=== PATIENT | female | born 1950 | race Caucasian/White ===

== ENCOUNTER 2017-10-31 21:00 | Outpatient (CLI) | payer MEDICARE, OTHER | END 2017-10-31 23:59 | disposition home or self-care (01) | LOC: D.MAMMO 21:00 | DX: Z12.31 Encounter for screening mammogram for malignant neoplasm of breast (principal) ==

== ENCOUNTER 2018-06-07 13:36 | Observation (INO) | payer MEDICARE, OTHER ==
--- NOTE | ~2018-06-07 | HEMODYNAMI ---
PATIENT:ADAM SUN MEDICAL RECORD: [id number] : 52 LOCATION:[address] ADMISSION DATE: 06/07/18 Generatedon:06/08/201810:28 Patient name: ADAM SUN Patient #: [id number] SSN: : 1950 Date of study: 06/08/2018 Page: Of Hemodynamic Procedure Report Patient Data Patient Demographics Procedure consent was obtained First Name: ADAM Gender: Female Last Name: DINO : 1950 Patient #: [id number] Age: 68 year(s) Race: Unknown Additional ID: [id number] Contact details [address]: [address] [place] [address] State: [place] City: [place] Zip code: [address] Past Medical History Allergies: No known allergies Admission Admission Data Admission Date: 06/07/2018 Admission Time: 15:19 Room #: 2120 Height (in.): 64.96 BSA: 1.77 (m2) Height (cm.): 165 BMI: 25.71 (kg/m2) Weight (lbs.): 154.32 Weight (kg.): 70 Lab Results Lab Result Date: 06/08/2018 Lab Result Time: 0:00 Biochemistry Name Units Result Min Max BUN mg/dl 15 --(--*-)-- 7 18 Creatinine mg/dl 0.7 --(*---)-- 0.6 1.3 CBC Name Units Result Min Max Hematocrit % 38.7 *-(----)-- 42 54 Hemoglobin g/dl 13.5 --(*---)-- 13.5 17.5 Procedure Procedure Types Cath Procedure Diagnostic Procedure [facility] w/Coronaries Sedation Charges Moderate Sedation up to 15 minutes PCI Procedure Coronary Stent Coronary Stent Initial Procedure Description Procedure Date Procedure Date: 06/08/2018 Procedure Start Time: 9:57 Procedure End Time: 10:24 Procedure Staff Name Function Aidan Pierre MD Performing Physician Romi NIX Monitor Mildred Woodruff RT Scrub Beatris Magaña RN Nurse Osmani Lovett RN Statistical Developer Procedure Data Cath Procedure Fluoroscopy Diagnostic fluoroscopy Total fluoroscopy Time: 7.9 time: 7.9 min min Diagnostic fluoroscopy Total fluoroscopy dose: 873 dose: 873 mGy mGy Contrast Material Contrast Material Type Amount (ml) Isovue 300 124 Entry Location Entry Primary Successful Side Size Upsize Upsize Entry Closure Succes sful Closure Location (Fr) 1 (Fr) 2 (Fr) Remarks Device Remarks Radial Right 6 Fr artery Short Estimated blood loss: 10 ml Diagnostic catheters Device Type Used For End Catheter Placement DIAGNOSTIC Lisman 110cm 5 Procedure Fr catheter ([id number]) Procedure Complications No complications Procedure Medications Medication Administration Route Dosage Oxygen etCO2 Nasal cannula 2 l/min Lidocaine 2% added to field 20 Heparin Flush Bag added to field 2 bags (1000units/500ml NS) 0.9% NaCl I.V. 100 ml/hr Radial Cocktail I.A. 1 syringe (Verapomil 2mg/Nitro 400mcg/Heparin 1500units) Versed I.V. 2 mg Fentanyl I.V. 50 mcg Versed I.V. 1 mg Fentanyl I.V. 50 mcg Versed I.V. 1 mg Heparin Bolus I.V. 7000 units Nitroglycerin IC/IA I.C. 100 mcg Versed I.V. 1 mg Plavix P.O. 600 mg Hemodynamics Rest BSA: 1.77 (m2) HGB: 13.5 (g/dl) O2 Consumption: Estimated: 159.01 (ml/min) O2 Co nsumption indexed: Estimated:89.84 (ml/min/m) Heart Rate: 62 (bpm) Pressure Samples Time Site Value (mmHg) Purpose Heart Use Rate(bpm) 10:00 LV 116/-8,2 EDP 92 Gradients Valve Time Site Site Mean SEP/DFP Peak To Heart Use 1 2 (mmHg) (sec/min) Peak Rate (mmHg) (bpm) Aortic 10:01 LV AO 118 Snapshots Pre Cath Intra NCS Post Cath Vital Signs Time Heart Resp SPO2 etCO2 NIBP (mmHg) Rhythm Pain Sedation Rate (ipm) (%) (mmHg) Status Level (bpm) 9:45:07 61 18 100 29.7 165/84(107) NSR 0 (11) 10(A) , No pain 9:49:25 61 17 98 26.7 135/78(104) NSR 0 (11) 10(A) , No pain 9:53:35 56 13 98 0 131/70(97) NSR 0 (11) 10(A) , No pain 9:57:45 63 15 96 0 136/68(90) NSR 0 (11) 9(A) , No pain 10:01:57 73 12 95 9.6 103/63(84) NSR 0 (11) 9(A) , No pain 10:05:59 76 14 94 13.3 103/61(83) NSR 0 (11) 9(A) , No pain 10:10:54 71 12 98 18.5 124/67(90) NSR 0 (11) 9(A) , No pain 10:15:02 74 11 100 14.1 112/66(92) NSR 0 (11) 9(A) , No pain 10:19:57 86 14 99 32.6 127/76(101) NSR 0 (11) 10(A) , No pain 10:24:02 84 15 99 24.4 129/76(102) NSR 0 (11) 10(A) , No pain Medications Time Medication Route Dose Verified Delivered Reason Not es Effectiveness by by 9:51:45 Oxygen etCO2 2 l/min Aidan Buffie used for Nasal Ignacio Magaña RN procedure cannula 9:51:52 Lidocaine 2% added 20ml Aidan Aidan for local to vial Ignacio Pierre MD anesthetic field 9:51:58 Heparin Flush added 2 bags Aidan Aidan used for Bag to Ignacio Pierre MD procedure (1000units/500ml field NS) 9:52:06 0.9% NaCl I.V. 100 Aidan Buffie Per physician ml/hr Ignacio Magaña RN 9:55:55 Versed I.V. 2 mg Aidan Buffie for sedation Ignacoi Magaña RN 9:56:02 Fentanyl I.V. 50 mcg Aidan Buffie for sedation Ignacio Magaña RN 9:59:30 Versed I.V. 1 mg Aidan Buffie for sedation Ignacio Magaña RN 9:59:33 Fentanyl I.V. 50 mcg Aidan Buffie for sedation Ignacio Magaña RN 9:59:36 Radial Cocktail I.A. 1 Aidan Aidan for (Verapomil syringe Ignacio Pierre MD vasodilation 2mg/Nitro 400mcg/Heparin 1500units) 10:05:46 Versed I.V. 1 mg Aidan Buffie for sedation Ignacio Magaña RN 10:08:11 Heparin Bolus I.V. 7000 Aidan Buffie for aquiles ified units Ignacio Magaña RN anticoagulation with dr pierre 10:19:50 Nitroglycerin I.C. 100 mcg Aidan Aidan for IC/IA Ignacio Pierre MD vasodilation 10:20:13 Versed I.V. 1 mg Aidan Aidan for sedation Ignacio Pierre MD 10:23:05 Plavix P.O. 600 mg Aidan Buffie for Ignacio Magaña RN antiplatelet therapy Procedure Log Time Note 9:12:20 Signed procedure consent form obtained from patient. 9:12:21 Diagnostic Cath status Elective 9:12:22 Time tracking: Regular hours (M-F 7:00 - 5:00) 9:12:26 Plan of Care:Hemodynamics will remain stable., Cardiac rhythm will remain stable., Comfort level will be maintained., Respiratory function will remain adequate., Patient/ family verbilizes understanding of procedure., Procedure tolerated without complication., Recovers from procedure without complications.. 9:12:36 Patient allergic to No known allergies 9:13:13 Lab Result : BUN 15 mg/dl 9:13:13 Lab Result : Creatinine 0.7 mg/dl 9:13:13 Lab Result : Hemoglobin 13.5 g/dl 9:13:13 Lab Result : Hematocrit 38.7 % 9:26:22 Mildred Woodruff RT(R) sent for patient. Start room use. 9:39:59 Patient received from Med II to CCL 2 Alert and oriented. Tansferred to table in Supine position. 9:40:00 Warm blankets applied, and eric hugger turned on for patient comfort. 9:40:01 Correct patient and procedure confirmed by team. 9:40:01 ECG and BP/O2 sat monitors applied to patient. 9:44:00 Vital chart was started 9:44:01 Baseline sample Acquired. 9:44:04 Rhythm: sinus rhythm 9:44:05 Full Disclosure recording started 9:44:06 Pre-procedure instructions explained to patient. 9:44:07 Pre-op teaching completed and patient verbalized understanding. 9:44:08 Family in patients room. 9:44:09 Patient NPO since Midnight. 9:44:11 Is patient on blood thinner?No 9:44:11 Patient diabetic? No. 9:44:13 Is the patient allergic to Iodine/contrast media? No. 9:44:15 Previous problem with sedation/anesthesia? No ? 9:44:16 Snore? Yes 9:44:17 Sleep apnea? No 9:44:18 Deviated septum? No 9:44:20 Opens mouth fully? Yes 9:44:21 Sticks out tongue? Yes 9:44:24 Airway obstruction? No ? 9:44:26 Dentures? No ? 9:44:29 Modified Anthony's test Ulnar < 7 seconds 9:44:34 IV patent on arrival in left forearm with 0.9% NaCl at KVO. 9:44:38 Lab results completed and on chart. 9:44:40 Right Radial & Right Groin area was prepped with chlora-prep and draped in sterile fashion 9:44:41 Alarms reviewed by R. N. 9:44:42 Sharps counted by scrub and verified by R.N. 9:44:45 Use device set Radial Dx or PCI 9:44:46 ACIST Syringe (90135) opened to sterile field. 9:44:47 Bag Decanter (2002S) opened to sterile field. 9:44:48 ACIST Hand Control (79682) opened to sterile field. 9:44:48 ACIST Manifold (54161) opened to sterile field. 9:44:49 Tegaderm 4 x 4 (1626W) opened to sterile field. 9:44:50 Medline Cath Pack ([id number]) opened to sterile field. 9:44:50 DIAGNOSTIC WIRE .035 260cm J wire (183382) opened to sterile field. 9:44:51 MBrace Wrist Support ([id number]) opened to sterile field. 9:44:51 NEEDLE Cook 21G 4cm Radial (A21550) opened to sterile field. 9:44:52 SHEATH 6FR Slender (13-8826) opened to sterile field. 9:50:53 Patient Weight : 154.32 lbs 9:50:57 Patient Height : 64.96 inches 9:51:45 Oxygen 2 l/min etCO2 Nasal cannula was administered by Beatris Magaña RN; used for procedure; 9:51:52 Lidocaine 2% 20ml vial added to field was administered by Aidan Pierre MD; for local anesthetic; 9:51:58 Heparin Flush Bag (1000units/500ml NS) 2 bags added to field was administered by Aidan Pierre MD; used for procedure; 9:52:06 0.9% NaCl 100 ml/hr I.V. was administered by Beatris Magaña RN; Per physician; 9:53:30 --------ALL STOP TIME OUT------ 9:53:31 Final Timeout: patient, procedure, and site verified with staff and physician. All members of the team are in agreement. 9:53:32 Right Radial & Right Groin site verified by team. 9:53:35 Maximum allowable Isovue 300 dose 300ml. Physician notified. (300ml for normal creatinines. For patients with creatinine of 1.7 or higher multiply weight(kg) x 5 divided by creatinine.) 9:53:39 Fire Safety Assessment: A--An alcohol-based skin anteseptic being used preoperatively., C--Open oxygen or nitrous oxide is being used., D--An ESU, laser, or fiber-optic light is being used. 9:53:41 Physical assessment completed. ASA score P 2 - A patient with mild systemic disease as per Aidan Pierre MD. 9:53:44 Sedation plan: IV Moderate Sedation Medication:Versed, Fentanyl 9:53:48 Zero performed for pressure channel P1 9:55:55 Versed 2 mg I.V. was administered by Beatris Magaña RN; for sedation; 9:56:02 Fentanyl 50 mcg I.V. was administered by Beatris Magaña RN; for sedation; 9:57:07 Procedure started. 9:57:12 Local anesthetic to right radial artery with Lidocaine 2% by Aidan Pierre MD.INITIAL ACCESS ONLY 9:58:53 A 6 Fr Short sheath was inserted into the Right Radial artery 9:59:30 Versed 1 mg I.V. was administered by Beatris Magaña RN; for sedation; 9:59:33 Fentanyl 50 mcg I.V. was administered by Beatris Magaña RN; for sedation; 9:59:36 Radial Cocktail (Verapomil 2mg/Nitro 400mcg/Heparin 1500units) 1 syringe I.A. was administered by Aidan Pierre MD; for vasodilation; 9:59:48 Zero performed for pressure channel P1 10:00:00 A DIAGNOSTIC Lisman 110cm 5 Fr catheter (500241) was advanced over the wire and used for Procedure. 10:00:09 LV gram done using RANGEL 10:00:31 Injector settings: Ml/sec: 7, Volume: 15, 10:00:56 LV hemodynamics recorded. 10:01:21 EF : 60 % 10:02:24 LCA angiography performed. 10:03:55 RCA angiography performed. 10:03:57 Catheter exchanged over wire. 10:05:10 GUIDE 6FR AR 1.0 catheter ([id number]) opened to sterile field. 10:05:10 BMW 300cm Straight Marion 2 wire (6896774) opened to sterile field. 10:05:11 INFLATOR Merit BasixCompak (BQ8376) opened to sterile field. 10:05:11 TUBING High Pressure Extension Tubing (Ignacio) ([id number]) opened to sterile field. 10:05:46 Versed 1 mg I.V. was administered by Beatris Magaña RN; for sedation; 10:06:05 6 Fr AR 1 guide catheter was inserted over the wire 10:08:11 Heparin Bolus 7000 units I.V. was administered by Beatris Magaña RN; for anticoagulation; verified with dr pierre 10:10:01 BMW 300 wire advanced. 10:10:02 Wire advanced across lesion. 10:11:07 Inflate balloon Inflation number: 1 A EMERGE OTW 2.0 x 20 balloon ([id number]) was prepped and advanced across the Dist RCA, then inflated to 10 CASSIE for 0:10 (min:sec). 10:11:33 Inflation number: 2 The EMERGE OTW 2.0 x 20 balloon ([id number]) was reinflated across the Dist RCA, to 10 CASSIE for 0:10 (min:sec). 10:12:22 Balloon removed over the wire. 10:17:39 Place stent Inflation Number: 3 A ELISABET OTW 2.25 x 26 stent ([id number]) was prepped and advanced across the Dist RCA. The stent was deployed at 10 CASSIE for 0:10 (min:sec). 10:19:19 Stent catheter was removed intact over wire. 10:19:50 Nitroglycerin IC/IA 100 mcg I.C. was administered by Aidan Pierre MD; for vasodilation; 10:: Versed 1 mg I.V. was administered by Aidan Pierre MD; for sedation; ::43 Wire removed. 10::43 Guide catheter removed. 10:22:15 TR BAND Standard ([id number]) opened to sterile field. 10::27 Procedure ended.(Physican Out) 10::37 Fluoroscopy time 07.90 minutes. 10:: Flurop Dose total: 873 10:: Fluoroscopy dose: 873 mGy 10::47 Contrast amount:Isovue 300 124ml. 10::53 Sharps counted by scrub and verified by R.N. 10:22:56 TR band inflated with 14cc of air. 10:23:01 Post-procedure physical assessment completed. ASA score P 2 - A patient with mild systemic disease as per Aidan Pierre MD. 10:23:04 Post procedure rhythm: sinus rhythm 10:23:05 Plavix 600 mg P.O. was administered by Beatris aMgaña RN; for antiplatelet therapy; 10:23:06 Estimated blood loss: 10 ml 10:23:28 Post procedure instruction explained to patient.Patient verbalizes understanding. 10:23:28 Patient needs reinforcement of post procedure teaching. 10::39 Procedure type changed to Cath procedure, Diagnostic procedure, LHC, LHC w/Coronaries, Sedation Charges, Moderate Sedation up to 15 minutes, PCI procedure, Coronary Stent, Coronary Stent Initial 10:24:25 Procedure and supply charges have been captured, reviewed, submitted and are correct. 10:24:30 Procedure Complication : No complications 10:24:32 Vital chart was stopped 10:24:33 See physician's report for complete and final results. 10:24:35 Report given to Pre/Post Procedure Room. 10:24:37 Patient transfered to Pre/Post Procedure Room with Bed. 10::39 Procedure ended. 10::39 Full Disclosure recording stopped ::43 End room use (Document Last) Intervention Summary Intervention Notes Time ActionType Lesion and Equipment Action# Pressure Duration Attributes Used 10:11:07 Inflate Dist RCA EMERGE OTW 1 10 00:10 balloon 2.0 x 20 balloon ([id number]) 10:11:33 Reinflate Dist RCA EMERGE OTW 2 10 00:10 balloon 2.0 x 20 balloon ([id number]) 10:17:39 Place stent Dist RCA LEISABET OTW 2.25 3 10 00:10 x 26 stent ([id number]) Device Usage Item Name Manufacture Quantity Catalog Number Hospital Part Current [facility] Lot# / Charge Number Stock Stock Serial# Code ACIST Syringe Acist 1 48105 000280 528036 021587 20 (28135) Medical Systems Inc Bag Decanter Microtek 1 2001S 313843 47241 491834 5 (2001S) Medical Inc. ACIST Hand Acist 1 54697 395134 134264 728418 5 Control Medical (05241) Systems Inc ACIST Acist 1 41395 900380 174996 753822 5 Manifold Medical (35795) Systems Inc Tegaderm 4 x 3M 1 1626W 734734 697136 660209 5 4 (1626W) Medline Cath Medline 1 [id number] 594061 92589 799488 5 Pack ([id number]) DIAGNOSTIC St Bakari 1 971069 701529 735268 746699 30 WIRE .035 260cm J wire (006677) MBrace Wrist Advanced 1 140-0250-00 043073 61052 493271 5 Support Vascular (870474251) Dynamics NEEDLE [employer] Technologies 1 N61165 938140 983232 617790 5 21G 4cm Radial (E29789) SHEATH 6FR Terumo 1 [id number] 328031 221911 015505 5 Slender (80-1060) DIAGNOSTIC Terumo 1 40-5013 704175 586596 346085 5 Lisman 110cm 5 Fr catheter (997689) GUIDE 6FR AR Medtronic 1 [id number] 390251 20076 238388 1 1.0 catheter (MF1JJ37) BMW 300cm Jesus 1 7702576 811571 480959 949374 5 Straight Vascular Marion 2 wire (0597777) INFLATOR Merit 1 AX2531 322739 562053 867947 15 Merit Medical BasixCompak (OI5357) TUBING High Merit 1 [id number] 755892 46996 471656 10 Pressure Medical Extension Tubing (Pierre) (HS8084N) EMERGE OTW Burtrum 1 [id number] 103900 681612 814376 5 [id number] 2.0 x 20 Scientific balloon ([id number]) ELISABET OTW 2.25 Medtronic 1 [id number] 396250 53516 128628 5 [id number] x 26 stent ([id number]) TR BAND Terumo 1 [id number] 935355 177811 688502 40 Standard ([id number]) Signature Audit [place] Stage Time Signature Unsigned Intra-Procedure 06/08/2018 Romi Vines 10:28:02 AM RT(R) Signatures Monitor : Romi Vines Signature : RT Date : Time : [id number] [place] [address]
[2018-06-07] MEDS ORDERED: TESSALON PERLE100 MG PO (13:45)
[2018-06-07] MEDS ORDERED: AUGMENTIN 875-11 TAB PO (13:46)
[2018-06-07] MEDS ORDERED: LISINOPRIL2.5 MG PO (13:46)
[2018-06-07] MEDS ORDERED: PRAVACHOL20 MG PO (13:46)
[2018-06-07] MEDS ORDERED: IMITREX100 MG PO (13:47)
[2018-06-07 14:00] VITALS: BP 148/81
[2018-06-07 14:32] LABS: BASOPHILS 0.6 % (0-2); EOSINOPHILS 3.2 % (0-7); HEMATOCRIT 35.7 % (36.0-48.0); HEMOGLOBIN 12.5 g/dL (12-16); IMMATURE GRANULOCYTES 0.5 % (0-5); MCH 29.4 pg (26.0-34.0); MEAN PLATELET VOLUME 9.4 fL (7.4-10.4); MONOCYTES 7.7 % (2-11); PLATELET COUNT 314 10x3/uL (130-400); RBC 4.25 10x6/uL (4.00-5.40); RDW 12.4 % (11.5-14.5); WBC 10.5 10x3/uL (4.8-10.8)
[2018-06-07 14:43] LABS: APTT 31.8 SECONDS (22.8-39.4); INR 0.97 (0.85-1.17); PROTIME 12.4 SECONDS (11.6-15.0)
[2018-06-07 14:52] LABS: ALBUMIN 3.3 g/dL (3.4-5.0); ALKALINE PHOSPHATASE 75 U/L (46-116); ALT (SGPT) 25 U/L (10-68); BILIRUBIN - TOTAL 0.29 mg/dL (0.2-1.3); CALC OSMOLALITY 272 mosm/kg (275-300); CALCIUM 8.6 mg/dL (8.5-10.1); CARBON DIOXIDE 28.5 mmol/L (21.0-32.0); CHLORIDE - SERUM 100 mmol/L (98-107); CREATININE - SERUM 0.7 mg/dL (0.6-1.3); GLUCOSE 100 mg/dL (74-106); POTASSIUM - SERUM 3.6 mmol/L (3.5-5.1); SODIUM 136 mmol/L (136-145); UREA NITROGEN 15 mg/dL (7-18); eGFR NON AFRICAN AMERICAN 88 mL/min (90-120)
[2018-06-07 15:04] LABS: CKMB 1.3 U/L (0.0-3.6); CREATINE KINASE 86 UL (21-215); TROPONIN-I 0.033 ng/mL (0.000-0.060)
[2018-06-07 15:30] VITALS: BP 123/78
[2018-06-07 17:01] VITALS: BP 151/74
[2018-06-07 20:00] VITALS: BP 133/74
[2018-06-08] VITALS: BP 133/70
[2018-06-08 01:22] LABS: CKMB 7.6 U/L (0.0-3.6); CREATINE KINASE 135 UL (21-215)
[2018-06-08 01:24] LABS: TROPONIN-I 3.207 ng/mL (0.000-0.060)
[2018-06-08 04:00] VITALS: BP 116/75
[2018-06-08 07:12] LABS: BASOPHILS 0.6 % (0-2); EOSINOPHILS 4.3 % (0-7); HEMATOCRIT 38.7 % (36.0-48.0); HEMOGLOBIN 13.5 g/dL (12-16); IMMATURE GRANULOCYTES 0.8 % (0-5); LYMPHOCYTES 23.8 % (15-50); MCH 29.4 pg (26.0-34.0); MCHC 34.9 g/dL (31.0-37.0); MCV 84.3 fL (80.0-100.0); MEAN PLATELET VOLUME 9.7 fL (7.4-10.4); NEUTROPHILS 61.5 % (40-80); PLATELET COUNT 293 10x3/uL (130-400); RBC 4.59 10x6/uL (4.00-5.40); RDW 12.4 % (11.5-14.5); WBC 8.4 10x3/uL (4.8-10.8)
[2018-06-08 07:21] LABS: CKMB 5.5 U/L (0.0-3.6); CREATINE KINASE 113 UL (21-215)
[2018-06-08 07:22] LABS: TROPONIN-I 1.482 ng/mL (0.000-0.060)
[2018-06-08 07:30] LABS: CALC OSMOLALITY 276 mosm/kg (275-300); CALCIUM 8.6 mg/dL (8.5-10.1); CARBON DIOXIDE 27.7 mmol/L (21.0-32.0); CHLORIDE - SERUM 104 mmol/L (98-107); CREATININE - SERUM 0.7 mg/dL (0.6-1.3); GLUCOSE 102 mg/dL (74-106); POTASSIUM - SERUM 3.9 mmol/L (3.5-5.1); SODIUM 139 mmol/L (136-145); UREA NITROGEN 11 mg/dL (7-18); eGFR NON AFRICAN AMERICAN 88 mL/min (90-120)
[2018-06-08 08:36] VITALS: BP 124/68
[2018-06-08] MEDS ORDERED: PLAVIX75 MG PO (10:43)
== END 2018-06-08 14:04 | disposition home or self-care (01) ==
LOC: D.ER 13:36 → D.EDHOLD 15:19 → D.M2 17:29 → D.CLR 06-08 10:41
PROVIDERS: Emergency Medicine; ADMIT Internal Medicine Cardiovascular Disease
DX: I21.4 Non-ST elevation (NSTEMI) myocardial infarction (principal); I25.110 Atherosclerotic heart disease of native coronary artery with unstable angina pectoris; I10 Essential (primary) hypertension; E78.5 Hyperlipidemia, unspecified
CPT/HCPCS: 93458; C9600

== ENCOUNTER → 2018-11-20 09:30 | Outpatient (CLI) | payer MEDICARE, OTHER ==
[2018-06-07 15:55] VITALS: BMI 25.8
[~2018-11-20 09:30] MED LIST: AUGMENTIN 875-11 TAB PO; IMITREX100 MG PO; LISINOPRIL2.5 MG PO; PLAVIX75 MG PO; PRAVACHOL20 MG PO; TESSALON PERLE100 MG PO
== END | disposition home or self-care (01) ==
LOC: D.MRI 09:30
PROVIDERS: ATTEND Orthopaedic Surgery
DX: M22.2X9 Patellofemoral disorders, unspecified knee (principal)

== ENCOUNTER → 2018-12-26 17:46 | Outpatient (CLI) | payer MEDICARE, OTHER ==
[2018-06-07 15:55] VITALS: BMI 25.8
[2018-12-26 18:12] LABS: LDL-HDL RATIO 0.9 ratio (1.5-3.5)
== END | disposition home or self-care (01) ==
LOC: D.LABREF 17:46
PROVIDERS: ATTEND Internal Medicine Cardiovascular Disease
DX: I25.10 Atherosclerotic heart disease of native coronary artery without angina pectoris (principal)

== ENCOUNTER 2019-04-16 09:15 | Day surgery (SDC) | payer MEDICARE, OTHER ==
[2019-04-13 14:41] LABS: HEMATOCRIT 42.7 % (36.0-48.0); HEMOGLOBIN 14.7 g/dL (12-16); MCH 30.5 pg (26.0-34.0); MCHC 34.4 g/dL (31.0-37.0); MCV 88.6 fL (80.0-100.0); MEAN PLATELET VOLUME 9.7 fL (7.4-10.4); RBC 4.82 10x6/uL (4.00-5.40); RDW 12.3 % (11.5-14.5)
[~2019-04-16] VITALS: Ht 165.1 cm; Wt 71.7 kg
[~2019-04-16 09:15] MED LIST changes: +BAYER CHEWABLE81 MG PO; +CENTRUM SILVER
[2019-04-16 09:32] VITALS: BP 136/80; Ht 165.1 cm; Wt 71.7 kg
[2019-04-16] MEDS ORDERED: HYDROCODON-ACE1 EA10 PO (11:09)
--- NOTE | 2019-04-16 11:44 | NUR ---
1135 RECIEVED REPORT FROM EDUARDO JUNIOR RN
--- NOTE | 2019-04-16 13:25 | NUR ---
1320 ASSISSTED UP TO BR VOIDS QS. GETTING DRESSED
--- NOTE | 2019-04-16 14:08 | NUR ---
1340 DC INSTS REVIEWED VOICED UNDERSTANDING, RX GIVEN RELEASED IN WC WITH ESCORT.
--- NOTE | 2019-04-17 09:22 | OP ---
PATIENT NAME: ADAM SUN MEDICAL RECORD: [id number] :52 LOCATION:D.OPS ADMISSION DATE: SURGEON: YISEL HAWK MD DATE OF OPERATION: 04/16/2019 PREOPERATIVE DIAGNOSES: 1. Patellofemoral syndrome of the left knee. 2. Medial meniscus tear of the left knee. PREOPERATIVE DIAGNOSES: 1. Patellofemoral syndrome of the left knee. 2. Medial meniscus tear of the left knee. PROCEDURE: 1. Arthroscopic partial medial meniscectomy. 2. Arthroscopic lateral release. SURGEON: Yisel Hawk MD DIRECTOR OF ASSESSING: GULSHAN Larkin INTRAOPERATIVE COMPLICATIONS: None. 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 OPERATIVE SUMMARY IN DETAIL: After obtaining the appropriate preoperative orthopedic surgery consent as well as anesthetic consultation, evaluation and clearance, the patient was brought to the operating room and placed on the operating table in supine position. After adequate general laryngeal mask airway was administered, tourniquet was placed about the proximal aspect of the left lower extremity. Left lower extremity was then prepped and draped in routine sterile fashion. The leg was elevated and exsanguinated, tourniquet inflated to 350 mmHg. Routine inferolateral portal was established, followed by superomedial portal and inferomedial portal. Diagnostic arthroscopy revealed the patient to have the meniscal tear on the medial side as noted. A combination of 3.5 full radius resector along with a meniscotome were utilized to debride the meniscus back to stable meniscal elements. The patient was not seen to have substantial amount of chondromalacia in the medial compartment or lateral compartment; however, after the arthroscopy viewing portal was switched to the medial side, the lateral facet was visualized in greater detail and found to have arthritic changes as noted above. Hook tip Bovie from [employer] was utilized to release the lateral retinaculum from just below the vastus medialis obliquus to the inferior lateral portal. Having completed this, the knee was insufflated with 30 mL of 0.25% Marcaine with epinephrine and 80 mg of Depo-Medrol. Arthroscopy portals were closed in routine interrupted fashion using 4-0 Prolene by GULSHAN Larkin. Sterile dressings were applied. Tourniquet was deflated. The patient was awakened and taken to recovery in stable condition. All final needle and sponge counts were correct. TRANSINT:[id number] Voice Confirmation ID: [id number] DOCUMENT ID: [id number] OPERATIVE REPORT [id number] ADAM SUN MD, YISEL MORENO at 0922 CC: [id number] DICTATION DATE: 04/16/19 1113 ASSORTER LAUNDRY: 04/16/19 1813 [facility] [place] 04/16/19 [id number] [place] [address]
== END 2019-04-16 13:40 | disposition home or self-care (01) ==
LOC: D.OPS 09:15 → D.PAN 10:45 → D.OPS 11:15 → D.PAN 12:00 → D.OPS 13:40 → D.PAN 14:30 → D.OPS 15:35 → D.PAN 15:35
PROVIDERS: Anesthesiology; ATTEND Orthopaedic Surgery
DX: S83.242A Other tear of medial meniscus, current injury, left knee, initial encounter (principal); X58.XXXA Exposure to other specified factors, initial encounter; I10 Essential (primary) hypertension; E78.2 Mixed hyperlipidemia; M17.12 Unilateral primary osteoarthritis, left knee

== ENCOUNTER → 2019-08-21 08:05 | Outpatient (CLI) | payer MEDICARE, OTHER ==
[2019-04-16 09:32] VITALS: BMI 26.3
[~2019-08-21 08:05] MED LIST changes: +HYDROCODON-ACE1 EA10 PO
== END | disposition home or self-care (01) ==
LOC: D.HCCECHO 08:05
PROVIDERS: ATTEND Internal Medicine Cardiovascular Disease
DX: I25.10 Atherosclerotic heart disease of native coronary artery without angina pectoris (principal)

== ENCOUNTER 2019-09-03 11:08 | Outpatient (CLI) | payer MEDICARE, OTHER ==
[~2019-09-03] VITALS: Ht 165.1 cm; Wt 72.1 kg
--- NOTE | ~2019-09-03 | HEMODYNAMI ---
PATIENT:ADAM SUN MEDICAL RECORD: [id number] : 52 LOCATION:[facility] ADMISSION DATE: 09/03/19 Generatedon:09/03/201913:05 Patient name: ADAM SUN Patient #: [id number] : 1950 Date of study: 09/03/2019 Page: Of Hemodynamic Procedure Report Patient Data Patient Demographics Procedure consent was obtained First Name: ADAM Gender: Female Last Name: DINO : 1950 Patient #: [id number] Age: 69 year(s) Race: SSN: [id number] Additional ID: [id number] Contact details [address]: [address] [place] [address] State: [place] City: [place] Zip code: [address] Past Medical History Allergies Allergen Reaction Date Comments Reported Other allergy 09/03/2019 codine Admission Admission Data Admission Date: 09/03/2019 Admission Time: 11:08 Arrival Date: 09/03/2019 Arrival Time: 0:00 Admit Source: Other Insurance Payor: Medicare Height (in.): 64.96 BSA: 1.79 (m2) Height (cm.): 165 BMI: 26.45 (kg/m2) Weight (lbs.): 158.73 Weight (kg.): 72 Lab Results Lab Result Date: 09/03/2019 Lab Result Time: 0:00 Biochemistry Name Units Result Min Max BUN mg/dl 11 --(-*--)-- 7 18 Creatinine mg/dl 0.7 --(*---)-- 0.6 1.3 eGFR ml/min 88.38927 -*(----)-- 90 120 NONAFRICAN Procedure Procedure Types Cath Procedure Diagnostic Procedure LHC LHC w/Coronaries Procedure Description Procedure Date Procedure Date: 09/03/2019 Procedure Start Time: 12:50 Procedure End Time: 13:04 Procedure Staff Name Function Aidan Pierre MD Performing Physician Cindy Lambert RT Monitor Jono Preston RN Nurse Bridger Nieves RT Scrub Indication Abnormal stress Echo Procedure Data Cath Procedure Fluoroscopy Diagnostic fluoroscopy Total fluoroscopy Time: 1.7 time: 1.7 min min Diagnostic fluoroscopy Total fluoroscopy dose: 226 dose: 226 mGy mGy Contrast Material Contrast Material Type Amount (ml) Isovue 300 46 Entry Location Entry Primary Successful Side Size Upsize Upsize Entry Closure Succes sful Closure Location (Fr) 1 (Fr) 2 (Fr) Remarks Device Remarks Femoral Right 5 Fr Exoseal artery Estimated blood loss: 10 ml Diagnostic catheters Device Type Used For End Catheter Placement MULTIPACK JL 4.0 5Fr Procedure catheter MULTIPACK 3DRC 5Fr Procedure catheter MULTIPACK Pigtail 5 Fr Ventriculography catheter Procedure Complications No complications Procedure Medications Medication Administration Route Dosage 0.9% NaCl I.V. 100 ml/hr Oxygen etCO2 Nasal cannula 2 l/min Heparin Flush Bag added to field 2 bags (1000units/500ml NS) Lidocaine 2% added to field 20 Versed I.V. 1 mg Fentanyl I.V. 50 mcg Versed I.V. 1 mg Fentanyl I.V. 50 mcg Versed I.V. 1 mg Hemodynamics Rest BSA: 1.79 (m2) O2 Consumption: Estimated: 159.75 (ml/min) O2 Consumption indexed : Estimated:89.25 (ml/min/m) Heart Rate: 61 (bpm) Pressure Samples Time Site Value (mmHg) Purpose Heart Use Rate(bpm) 13:00 LV 183/-12,35 Snapshot 78 13:00 LV 157/-10,14 Snapshot 77 13:01 AO 150/75(109) Pullback 83 13:01 LV 155/-11,12 Pullback 83 Gradients Valve Time Site 1 Site 2 Mean SEP/DFP Peak To Heart Use (mmHg) (sec/min) Peak Rate (mmHg) (bpm) Aortic 13:01 LV AO 8 25 5 83 155/-11,12 150/75(109) Calculations Valve P-P Mean Valve Index Valve Source Name Gradient Area Flow (cm2) Aortic 5 8 5 8 Snapshots Pre Cath Intra NCS Post Cath Vital Signs Time Heart Resp SPO2 etCO2 NIBP (mmHg) Rhythm Pain Sedation Rate (ipm) (%) (mmHg) Status Level (bpm) 12:36:20 59 24 100 30.6 166/73(140) NSR 0 (11) 10(A) , No pain 12:40:47 64 18 100 32.1 161/74(101) NSR 0 (11) 10(A) , No pain 12:45:13 59 26 100 37.4 145/74(109) NSR 0 (11) 10(A) , No pain 12:49:35 64 10 100 35.1 137/71(96) NSR 0 (11) 10(A) , No pain 12:53:55 65 15 100 35.9 123/64(85) NSR 0 (11) 9(A) , No pain 12:58:13 62 12 100 36.6 116/62(96) NSR 0 (11) 9(A) , No pain 13:02:23 82 15 100 26.1 127/78(91) NSR 0 (11) 10(A) , No pain Medications Time Medication Route Dose Verified Delivered Reason Notes Eff ectiveness by by 12:38:50 0.9% NaCl I.V. 100 Jono Jono Per ml/hr Kary Preston physician RN RN 12:38:59 Oxygen etCO2 2 Jono Jono for low 02 Nasal l/min Lorigan Lorigan sats cannula RN RN 12:39:14 Heparin Flush added 2 Jono Jono used for Bag to bags Lorigan Lorigan procedure (1000units/500ml field RN RN NS) 12:39:25 Lidocaine 2% added 20ml Jono Jono for local to vial Lorigan Lorigan anesthetic field RN RN 12:43:52 Versed I.V. 1 mg Jono Jono for Lorigan Lorigan sedation RN RN 12:44:00 Fentanyl I.V. 50 Jono Jono for mcg Lorigan Lorigan sedation RN RN 12:50:34 Versed I.V. 1 mg Jono Jono for Lorigan Lorigan sedation RN RN 12:50:40 Fentanyl I.V. 50 Jono Jono for mcg Lorigan Lorigan sedation RN RN 12:53:05 Versed I.V. 1 mg Jono Jono for Lorigan Lorigan sedation RN barrel waterer Log Time Note 11:59:30 Informed consent obtained and on chart 12:32:05 Arrival Date: 09/03/2019 12:00:00 AM 12:33:15 Patient Height : 64.96 inches 12:33:18 Patient Weight : 158.73 lbs 12:33:21 Admit Source: Other 12:33:32 Insurance Payor : Medicare 12:34:07 Lab Result : eGFR NONAFRICAN 88.04611 ml/min 12:34:07 Lab Result : Creatinine 0.7 mg/dl 12:34:07 Lab Result : BUN 11 mg/dl 12:34:35 Indication : Abnormal stress Echo 12:34:42 Procedure Status Elective Heart Cath (OP). 12:34:45 Jono Preston RN sent for patient. Start room use. 12:34:46 Time tracking: Regular hours (M-F 7:00 - 5:00) 12:34:51 Plan of Care:Hemodynamics will remain stable., Cardiac rhythm will remain stable., Comfort level will be maintained., Respiratory function will remain adequate., Patient/ family verbilizes understanding of procedure., Procedure tolerated without complication., Recovers from procedure without complications.. 12:34:56 Patient received from Pre/Post Procedure Room to CCL 1 Alert and oriented. Tansferred to table in Supine position. 12:34:58 Warm blankets applied, and eric hugger turned on for patient comfort. 12:34:59 Correct patient and procedure confirmed by team. 12:34:59 ECG and BP/O2 sat monitors applied to patient. 12:35:00 Vital chart was started 12:35:02 Baseline sample Acquired. 12:35:06 Rhythm: sinus rhythm 12:35:09 Full Disclosure recording started 12:35:14 H&P Date Dictated: 09/03/2019 Within 30 days and on chart., H&P Addendum completed by physician on day of procedure. (MUST COMPLETE FOR ALL OUTPATIENTS). 12:35:16 Pre-procedure instructions explained to patient. 12:35:19 Family in waiting room. 12:35:23 Patient NPO since Midnight. 12:35:35 Patient allergic to Other allergycodine 12:35:38 Is the patient allergic to Iodine/contrast media? No. 12:35:42 Is patient on blood thinner?No 12:35:50 Patient diabetic? No. 12:35:53 Snore? Yes 12:35:55 Sleep apnea? No 12:36:01 Patient pain scale 0/10 ?. 12:36:08 IV patent on arrival in left forearm with 0.9% NaCl at [facility]. 12:36:17 Stress Test: yes; abnormal ? 12:36:20 Right groin area was prepped with chlora-prep and draped in sterile fashion 12:36:21 Alarms reviewed by R. N. 12:36:22 Sharps counted by scrub and verified by R.N. 12:36:23 Physician paged 12:36:24 Physician arrived 12:38:50 0.9% NaCl 100 ml/hr I.V. was administered by Jono Preston RN; Per physician; Verbal order read back and verified. 12:38:59 Oxygen 2 l/min etCO2 Nasal cannula was administered by Jono Preston RN; for low 02 sats; Verbal order read back and verified. 12:39:14 Heparin Flush Bag (1000units/500ml NS) 2 bags added to field was administered by Jono Preston RN; used for procedure; Verbal order read back and verified. 12:39:25 Lidocaine 2% 20ml vial added to field was administered by Jono Preston RN; for local anesthetic; Verbal order read back and verified. 12:43:25 --------ALL STOP TIME OUT------ 12:43:26 Final Timeout: patient, procedure, and site verified with staff and physician. All members of the team are in agreement. 12:43:35 Right groin site verified by team. 12:43:39 Fire Safety Assessment: A--An alcohol-based skin anteseptic being used preoperatively., C--Open oxygen or nitrous oxide is being used., D--An ESU, laser, or fiber-optic light is being used. 12:43:43 Physical assessment completed. ASA score P 2 - A patient with mild systemic disease as per Aidan Pierre MD. 12:43:46 2) 60-89 Mildly reduced kidney function, and other findings (as for stage 1) point to kidney disease. 12:43:51 Maximum allowable contrast dose (3.7 X eGFR X 0.75)244 ml. 12:43:52 Versed 1 mg I.V. was administered by Jono Preston RN; for sedation; Verbal order read back and verified. 12:43:56 Sedation plan: IV Moderate Sedation Medication:Versed, Fentanyl 12:44:00 Fentanyl 50 mcg I.V. was administered by Jono Preston RN; for sedation; Verbal order read back and verified. 12:44:00 Use device set Femoral Dx 12:44:27 ACIST Syringe (61451) opened to sterile field. 12:44:27 Bag Decanter (2002S) opened to sterile field. 12:44:28 Medline Cath Pack ([id number]) opened to sterile field. 12:44:29 ACIST Hand Control (68286) opened to sterile field. 12:44:29 ACIST Manifold (63873) opened to sterile field. 12:44:30 DIAGNOSTIC Multipack 5Fr catheter set (DD1958) opened to sterile field. 12:44:31 Tegaderm 4 x 4 (1626W) opened to sterile field. 12:44:32 SHEATH 5FR Scotia (ZOU165) opened to sterile field. 12:44:33 EMERALD Guide Wire (069-801) opened to sterile field. 12:50:09 Procedure started. 12:50:29 Local anesthetic to right femoral artery with Lidocaine 2% by Aidan Pierre MD.INITIAL ACCESS ONLY 12:50:34 Versed 1 mg I.V. was administered by Jono Preston RN; for sedation; Verbal order read back and verified. 12:50:40 Fentanyl 50 mcg I.V. was administered by Jono Preston RN; for sedation; Verbal order read back and verified. 12:50:40 A 5 Fr sheath was inserted into the Right Femoral artery 12:53:05 Versed 1 mg I.V. was administered by Jono Preston RN; for sedation; Verbal order read back and verified. 12:54:44 A MULTIPACK JL 4.0 5Fr catheter was advanced over the wire and used for Procedure. 12:56:46 LCA angiography performed. 12:56:50 Catheter removed. 12:56:57 A MULTIPACK 3DRC 5Fr catheter was advanced over the wire and used for Procedure. 12:59:07 RCA angiography performed. 12:59:09 Catheter removed. 12:59:17 A MULTIPACK Pigtail 5 Fr catheter was advanced over the wire and used for Ventriculography. 12:59:21 LV gram done using RANGEL 13:00:49 EF : 55 % 13:01:04 EXOSEAL 5Fr (EX500) opened to sterile field. 13:01:07 Catheter removed. 13:01:23 Sheath removed intact; hemostasis achieved with Exoseal to the Right Femoral artery. 13:01:25 Procedure ended.(Physican Out) 13:01:36 Fluoroscopy time 01.70 minutes. 13:01:42 Fluoroscopy dose: 226 mGy 13:01:42 Flurop Dose total: 226 13:01:48 Dose Area Product 80444 mGy/cm. 13:01:54 Contrast amount:Isovue 300 46ml. 13:01:59 Maximum allowable dose exceeded? No. 13:02:06 Insertion/operative site no bleeding no hematoma. 13:02:17 Post right femoral artery:stable 13:02:27 Post-procedure physical assessment completed. ASA score P 2 - A patient with mild systemic disease as per Aidan Pierre MD. 13:02:30 Post procedure rhythm: unchanged. 13:02:40 Estimated blood loss: 10 ml 13:02:44 Post procedure instruction explained to patient.Patient verbalizes understanding. 13:03:42 Procedure and supply charges have been captured, reviewed, submitted and are correct. 13:03:47 Procedure Complication : No complications 13:03:49 Vital chart was stopped 13:03:51 Operative report dictated upon procedure completion. 13:03:52 See physician's report for complete and final results. 13:03:53 Report given to Pre/Post Procedure Room. 13:03:57 Patient transfered to Pre/Post Procedure Room with Stretcher. 13:04:00 Procedure ended. 13:04:00 Full Disclosure recording stopped 13:04:03 End room use (Document Last) 13:04:03 End room use (Document Last) 13:04:27 End room use (Document Last) 13:05:05 End room use (Document Last) Device Usage Item Name Manufacture Quantity Catalog Hospital Part Current Minimal L ot# / Number Charge Number Stock Stock Serial# Code ACIST Acist 1 21314 952127 218540 [id number] 20 Syringe Medical (61909) Systems Inc Bag Microtek 1 083970 67838 063754 5 Decanter Medical Inc. () Medline Medline 1 [id number] 805431 13644 064439 5 Cath Pack ([id number]) ACIST Hand Acist 1 10768 437603 994733 900326 5 Control Medical (29339) Systems Inc ACIST Acist 1 79127 745186 960071 365193 5 Aspen Avionics (08486) Systems Inc DIAGNOSTIC Cardinal 1 PU1191 789858 87779 929239 30 Multipack Health 5Fr catheter set (FR1460) Tegaderm 4 3M 1 1626W 327478 296171 791880 5 x 4 (1626W) SHEATH 5FR Terumo 1 THG834 422160 304898 621602 5 Scotia (HLK720) EMERALD Cardinal 1 502-455 811890 509046 379731 5 Guide Wire [employer] (502-455) MULTIPACK Cardinal 1 981089 5 JL 4.0 5Fr Health catheter MULTIPACK Cardinal 1 963098 5 3DRC 5Fr Health catheter MULTIPACK Cardinal 1 658762 5 Pigtail 5 Health Fr catheter EXOSEAL 5Fr Cardinal 1 EX500 931038 445029 381502 10 (EX500) Health Signature Audit Moneta Stage Time Signature Unsigned Intra-Procedure 09/03/2019 Cindy Lambert 1:04:27 PM RT(R) Intra-Procedure 09/03/2019 Jono 1:05:05 PM Kary RN Intra-Procedure 09/03/2019 Aidan Pierre MD 1:05:35 PM [facility] [address] [place] [address]
[2019-09-03] MEDS ORDERED: PRAVACHOL40 MG PO (11:29)
[2019-09-03] MEDS ORDERED: NITROQUICK0.4 MG SL (11:31)
[2019-09-03] MEDS ORDERED: VITAMIN D1000 UNIT PO (11:33)
[2019-09-03] MEDS ORDERED: LISINOPRIL10 MG PO (11:34)
[2019-09-03 12:01] VITALS: BP 142/88; Ht 165.1 cm; Wt 72.1 kg
[2019-09-03 12:14] LABS: HEMATOCRIT 45.3 % (36.0-48.0); HEMOGLOBIN 15.4 g/dL (12-16); LYMPHOCYTES 26.9 % (15-50); MCH 29.6 pg (26.0-34.0); MCV 87.1 fL (80.0-100.0); MEAN PLATELET VOLUME 10.4 fL (7.4-10.4); NEUTROPHILS 62.1 % (40-80); PLATELET COUNT 301 10x3/uL (130-400); RDW 12.3 % (11.5-14.5); WBC 6.7 10x3/uL (4.8-10.8)
[2019-09-03 12:19] LABS: ALT (SGPT) 26 U/L (10-68); CALC OSMOLALITY 277 mosm/kg (275-300); CALCIUM 9.1 mg/dL (8.5-10.1); CARBON DIOXIDE 27.4 mmol/L (21.0-32.0); CHLORIDE - SERUM 103 mmol/L (98-107); CHOL - HDL RATIO 2.3 ratio (2.3-4.1); CHOLESTEROL, TOTAL 201 mg/dL (0-200); CREATININE - SERUM 0.7 mg/dL (0.6-1.3); GLUCOSE 102 mg/dL (74-106); HDL CHOLESTEROL 87 mg/dL (32-96); LDL CHOLESTEROL 96 mg/dL (0-100); LDL-HDL RATIO 1.1 ratio (1.5-3.5); POTASSIUM - SERUM 3.7 mmol/L (3.5-5.1); SODIUM 140 mmol/L (136-145); TRIGLYCERIDE 94 mg/dL (30-200); UREA NITROGEN 11 mg/dL (7-18); eGFR NON AFRICAN AMERICAN 88 mL/min (90-120)
--- NOTE | 2019-09-03 13:15 | NUR ---
PT REC'D TO ROOM 5 VIA STRETCHER FROM TAPE CUTTER. MONITORS ESTAB. AT BS. SEE SENIOR SEARCH MARKETING ANALYST, ALARMS ON AND C/L IN REACH.
--- NOTE | 2019-09-03 13:25 | NUR ---
DR. ULLOA IN TO UPDATE PT AND HER .
--- NOTE | 2019-09-03 13:30 | NUR ---
R GROIN SITE SOFT, NO S/S BLEEDING OR HEMATOMA. R LEG/FOOT WARM WITH PALP PULSES. VSS. PT TAKING ICE CHIPS. AT BS.
--- NOTE | 2019-09-03 14:00 | NUR ---
R GROIN SITE SOFT, NO S/S BLEEDING OR HEMATOMA. R LEG/ARM WARM, PALP PULSES. VSS. PT DENIES PAIN OR NEEDS.
--- NOTE | 2019-09-03 14:15 | NUR ---
R GROIN SITE SOFT, NO S/S BLEEDING OR HEMATOMA. BEGIN TO ELEVATE HOB. WILL CONT CLOSE MONITORING. ALARMS ON AND C/L IN REACH.
--- NOTE | 2019-09-03 14:22 | NUR ---
R GROIN SITE SOFT, C/D/I. SANDWICH TRAY PROVIDED AND FRESH WATER.
--- NOTE | 2019-09-03 14:45 | NUR ---
R GROIN SITE SOFT, NO S/S BLEEDING OR SWELLING. PULSES PALP. PT DENIES PAIN OR NEEDS.
--- NOTE | 2019-09-03 15:15 | NUR ---
R GROIN SITE SOFT, C/D/I. VSS. PIV D/C'D INTACT, DSG APPLIED AND PT ALLOWED UP TO GET DRESSED AND GO TO BR INDEPENDENTLY. ASSISTING.
--- NOTE | 2019-09-03 15:37 | NUR ---
ALL DISCHARGE INSTRUCTIONS REVIEWED WITH PT AND , PT D/C'D VIA W/C TO PRIVATE VEHICLE WITH ALL PAPER WORK AND BELONGINGS.
== END 2019-09-03 15:37 | disposition home or self-care (01) ==
LOC: D.CATH 11:08
PROVIDERS: ATTEND Internal Medicine Cardiovascular Disease
DX: I25.119 Atherosclerotic heart disease of native coronary artery with unspecified angina pectoris (principal); R94.39 Abnormal result of other cardiovascular function study; I25.2 Old myocardial infarction; I10 Essential (primary) hypertension

== ENCOUNTER → 2020-04-24 09:22 | Outpatient (CLI) | payer MEDICARE, OTHER ==
[2019-12-20 11:17] VITALS: BMI 26.1
[~2020-04-24 09:22] MED LIST changes: +LISINOPRIL10 MG PO; +NITROQUICK0.4 MG SL; +PRAVACHOL40 MG PO; +VITAMIN D1000 UNIT PO; +ZOFRAN ODT4 MG/UDTAB PO
--- NOTE | 2020-04-25 07:55 | ST ---
PATIENT:ADAM SUN MEDICAL RECORD: [id number] SEX: F LOCATION:[facility] ORDER #: ADMISSION DATE: 04/24/20 AGE OF PATIENT: 70 REFERRING PHYSICIAN: INTERPRETING PHYSICIAN: GLADYS BALDERAS MD DATE OF SERVICE: 04/24/2020 NUCLEAR STRESS TEST GATED: Normal. Normal wall motion. Normal EF. Calculated EF 70%. SPECT IMAGING: SPECT imaging was performed. 1. Short axis view: Short axis view shows good uptake along the anterior wall, lateral wall and inferior wall. 2. Horizontal axis: Horizontal axis confirms good uptake along the anterior wall and inferior wall. 3. Vertical axis: Vertical axis shows good uptake along the lateral wall and septum. FINAL IMPRESSION: 1. Normal gated, normal wall motion, EF 70%. 2. Normal SPECT imaging. FINAL IMPRESSION: The scan is felt low risk for any significant restenosis or progression of paimiut disease. LV function remains normal at 70%. TRANSINT:[id number] Voice Confirmation ID: [id number] DOCUMENT ID: [id number] GLADYS BALDERAS MD at 0755 CC: [id number] DICTATION DATE: 04/24/20 1616 SHIFT COORDINATOR: 04/25/20 0731 DEP CLI 04/24/20 [id number] [place] [address]
== END | disposition home or self-care (01) ==
LOC: D.HCCARDIO 09:22
PROVIDERS: ATTEND Internal Medicine Interventional Cardiology
DX: I25.10 Atherosclerotic heart disease of native coronary artery without angina pectoris (principal)